=== PATIENT | female | born 1970 | race African-American/Black ===

== ENCOUNTER 2018-05-04 12:14 | Emergency (ER) | payer BC ==
--- NOTE | 2018-05-04 12:49 | ER ---
Nurse's Notes [facility] Name: Magui Le Age: 48 yrs Sex: Female : 1970 Arrival Date: 05/04/2018 Time: 12:18 Bed 13 Private MD: Prasanna Alcala V Diagnosis: Pain in right ankle and joints of right foot Presentation: 05/04 12:27 Presenting complaint: Patient states: "I have pain in my right ankle. I haven't done lk1 anything to it, just standing on it all the time. I have plantar fascitis.". Transition of care: patient was not received from another setting of care. Onset of symptoms was May 03, 2018. Risk Assessment: Do you want to hurt yourself or someone else? Patient reports no desire to harm self or others. Initial Sepsis Screen: Does the patient meet any 2 criteria? No. Patient's initial sepsis screen is negative. Does the patient have a suspected source of infection? No. Patient's initial sepsis screen is negative. Care prior to arrival: None. 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 - Social history:: Smoking status: Patient/guardian denies using tobacco. - Ebola Screening: : No symptoms or risks identified at this time. Screenin:35 Abuse screen: Denies threats or abuse. rb1 12:35 Nutritional screening: No deficits noted. Tuberculosis screening: No symptoms or risk rb1 factors identified. Fall Risk None identified. Assessment: 12:32 General: Appears uncomfortable, Behavior is calm, cooperative, Denies fever. Pain: rb1 Complains of pain in right foot Pain currently is 6 out of 10 on a pain scale. Pain began Off and on for several months. Neuro: Level of Consciousness is awake, alert, obeys commands, Oriented to person, place, time, situation. Cardiovascular: Capillary refill < 3 seconds is brisk in bilateral toes. Respiratory: Airway is patent Respiratory effort is even, unlabored, Respiratory pattern is regular, symmetrical. GI: No signs and/or symptoms were reported involving the gastrointestinal system. : No signs and/or symptoms were reported regarding the genitourinary system. Derm: Skin is dry, Skin is normal, Skin temperature is warm. Musculoskeletal: Range of motion: intact in all extremities. 13:20 Reassessment: Patient appears in no apparent distress at this time. Patient and/or rb1 family updated on plan of care and expected duration. Pain level reassessed. Patient is alert, oriented x 3, equal unlabored respirations, skin warm/dry/pink. Patient states symptoms have improved. Vital Signs: 12:30 BP 142 / 89; Pulse 73; Resp 15; Temp 97.1(TE); Pulse Ox 99% on R/A; Weight 107.05 kg lk1 (R); Height 5 ft. 2 in. (157.48 cm) (R); Pain 7/10; 13:20 BP 133 / 88; Pulse 76; Resp 19; Pulse Ox 99% on R/A; rb1 12:30 Body Mass Index 43.16 (107.05 kg, 157.48 cm) lk1 ED Course: 12:18 Patient arrived in ED. sb2 12:19 Prasanna Alcala MD is Private Physician. sb2 12:25 Christine Gates FNP-C [facility]. snw 12:25 Zaid Russell MD is Attending Physician. snw 12:28 Triage completed. lk1 12:32 Arm band placed on right wrist. lk1 12:35 Patient has correct armband on for positive identification. Bed in low position. Call rb1 light in reach. Side rails up X 1. Pulse ox on. NIBP on. 12:37 Mary Kong, TRENT is Primary Nurse. rb1 12:48 Prasanna Alcala MD is Referral Physician. snw 13:35 No provider procedures requiring assistance completed. Patient did not have IV access rb1 during this emergency room visit. Administered Medications: 12:50 Drug: TORadol 60 mg Route: IM; Site: right gluteus; rb1 13:20 Follow up: Response: No adverse reaction; Pain is decreased rb1 Outcome: 12:49 Discharge ordered by MD. snw 13:35 Discharged to home ambulatory. rb1 13:35 Condition: stable 13:35 Discharge instructions given to patient, Instructed on discharge instructions, follow up and referral plans. medication usage, Demonstrated understanding of instructions, follow-up care, medications, Prescriptions given X 1. 13:35 Patient left the ED. rb1 Signatures: Christine Gates, POSTMASTER-C POSTMASTER-Csnw Mary Kong, RN RN rb1 Dinora Sandy RN RN lk1 Sivan Garza sb2 Corrections: (The following items were deleted from the chart) 13:40 13:39 No provider procedures requiring assistance completed. rb1 rb1 13:40 13:39 Patient did not have IV access during this emergency room visit. rb1 rb1 13:41 13:40 Patient left the ED. rb1 rb1
--- NOTE | 2018-05-04 12:49 | EDPHYS ---
Physician Documentation [facility] Name: Magui Le Age: 48 yrs Sex: Female : 1970 Arrival Date: 05/04/2018 Time: 12:18 Bed 13 Private MD: Prasanna Alcala V ED Physician Zaid Russell HPI: 05/04 12:46 This 48 yrs old Black Female presents to ER via Ambulatory with complaints of Ankle snw Injury. 12:46 The patient presents with pain, that is chronic, swelling, tenderness. The complaints snw affect the right ankle. Onset: The symptoms/episode began/occurred gradually, 1 week(s) ago, and became worse and became persistent. Context: The problem was sustained at an unknown location, resulted from The patient can fully bear weight on the affected extremity. the patient is able to ambulate. Associated signs and symptoms: The patient has no apparent associated signs or symptoms. Severity of symptoms: At their worst the symptoms were moderate, severe. The patient has experienced a previous episode, approximately 3 years ago. The patient has not recently seen a physician, Dr. Houston injected area 3 yrs ago. 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 - Social history:: Smoking status: Patient/guardian denies using tobacco. - Ebola Screening: : No symptoms or risks identified at this time. ROS: 12:46 Constitutional: Negative for fever, chills, and weight loss, Eyes: Negative for injury, snw pain, redness, and discharge, ENT: Negative for injury, pain, and discharge, Neck: Negative for injury, pain, and swelling, Cardiovascular: Negative for chest pain, palpitations, and edema, Respiratory: Negative for shortness of breath, cough, wheezing, and pleuritic chest pain, Abdomen/GI: Negative for abdominal pain, nausea, vomiting, diarrhea, and constipation, Back: Negative for injury and pain, : Negative for injury, bleeding, discharge, and swelling, Skin: Negative for injury, rash, and discoloration, Neuro: Negative for headache, weakness, numbness, tingling, and seizure. 12:46 MS/extremity: Positive for pain, of the right Achilles and lateral aspect of right calf. Exam: 12:43 Constitutional: This is a well developed, well nourished patient who is awake, alert, snw and in no acute distress. Head/Face: Normocephalic, atraumatic. Eyes: Pupils equal round and reactive to light, extra-ocular motions intact. Lids and lashes normal. Conjunctiva and sclera are non-icteric and not injected. Cornea within normal limits. Periorbital areas with no swelling, redness, or edema. ENT: Nares patent. No nasal discharge, no septal abnormalities noted. Tympanic membranes are normal and external auditory canals are clear. Oropharynx with no redness, swelling, or masses, exudates, or evidence of obstruction, uvula midline. Mucous membranes moist. Neck: Trachea midline, no thyromegaly or masses palpated, and no cervical lymphadenopathy. Supple, full range of motion without nuchal rigidity, or vertebral point tenderness. No Meningismus. Chest/axilla: Normal chest wall appearance and motion. Nontender with no deformity. No lesions are appreciated. Cardiovascular: Regular rate and rhythm with a normal S1 and S2. No gallops, murmurs, or rubs. Normal PMI, no JVD. No pulse deficits. Respiratory: Lungs have equal breath sounds bilaterally, clear to auscultation and percussion. No rales, rhonchi or wheezes noted. No increased work of breathing, no retractions or nasal flaring. Abdomen/GI: Soft, non-tender, with normal bowel sounds. No distension or tympany. No guarding or rebound. No evidence of tenderness throughout. Back: No spinal tenderness. No costovertebral tenderness. Full range of motion. Skin: Warm, dry with normal turgor. Normal color with no rashes, no lesions, and no evidence of cellulitis. Neuro: Awake and alert, GCS 15, oriented to person, place, time, and situation. Cranial nerves II-XII grossly intact. Motor strength 5/5 in all extremities. Sensory grossly intact. Cerebellar exam normal. Normal gait. Psych: Awake, alert, with orientation to person, place and time. Behavior, mood, and affect are within normal limits. 12:43 Musculoskeletal/extremity: Extremities: grossly normal except: noted in the lateral aspect of right calf, right ankle and right Achilles: swelling, tenderness, ROM: no acute changes, Circulation is intact in all extremities. DVT Exam: negative Homans' sign noted on exam, no appreciated bluish discoloration, no erythema, no increased warmth. Vital Signs: 12:30 BP 142 / 89; Pulse 73; Resp 15; Temp 97.1(TE); Pulse Ox 99% on R/A; Weight 107.05 kg lk1 (R); Height 5 ft. 2 in. (157.48 cm) (R); Pain 7/10; 13:20 BP 133 / 88; Pulse 76; Resp 19; Pulse Ox 99% on R/A; rb1 12:30 Body Mass Index 43.16 (107.05 kg, 157.48 cm) lk1 MDM: 12:33 Patient medically screened. snw 12:45 Data reviewed: vital signs, nurses notes. Data interpreted: Pulse oximetry: on room air snw is 99 %. Interpretation: normal. Counseling: I had a detailed discussion with the patient and/or guardian regarding: the historical points, exam findings, and any diagnostic results supporting the discharge/admit diagnosis, the presence of at least one elevated blood pressure reading (>120/80) during this emergency department visit, the need for outpatient follow up, to return to the emergency department if symptoms worsen or persist or if there are any questions or concerns that arise at home. Special discussion: I have referred the patient to see his PCP for further evaluation of high blood pressure. Based on the history and exam findings, there is no indication for further emergent testing or inpatient evaluation. I discussed with the patient/guardian the need to see the retail product demo specialist for further evaluation of the symptoms. 12:51 ED course: +Gan test. snw 05/04 12:51 Order name: Aircast Ankle Splint; Complete Time: 13:19 snw Administered Medications: 12:50 Drug: TORadol 60 mg Route: IM; Site: right gluteus; rb1 13:20 Follow up: Response: No adverse reaction; Pain is decreased rb1 Disposition: 18:32 Co-signature as Attending Physician, Zaid Russell MD. Disposition: 05/04/18 12:49 Discharged to Home. Impression: Pain in right ankle and joints of right foot. - Condition is Stable. - Discharge Instructions: Arthralgia, Hypertension, Musculoskeletal Pain, Cast or Splint Care, [id number], Cryotherapy, Heat Therapy. - Prescriptions for Voltaren 1 % Topical gel - apply 2 gram by TOPICAL route 4 times per day; 50 gram. - Work release form, Medication Reconciliation Form, Thank You Letter, Antibiotic Education, Prescription Opioid Use form. - Follow up: Prasanna Aclala MD; When: 2 - 3 days; Reason: Recheck today's complaints, Continuance of care, Re-evaluation by your physician. Follow up: Emergency Department; When: As needed; Reason: Worsening of condition. Signatures: Christine Gates, BUILDING SUPPLIES SALESPERSON RETAIL-C BUILDING SUPPLIES SALESPERSON RETAIL-Csnw Mary Kong, RN RN rb1 Dinora Sandy RN RN lk1 Zaid Russell MD MD Corrections: (The following items were deleted from the chart) 13:40 12:49 05/04/2018 12:49 Discharged to Home. Impression: Pain in right ankle and joints rb1 of right foot. Condition is Stable. Forms are Medication Reconciliation Form, Thank You Letter, Antibiotic Education, Prescription Opioid Use. Follow up: Prasanna Alcala; When: 2 - 3 days; Reason: Recheck today's complaints, Continuance of care, Re-evaluation by your physician. Follow up: Emergency Department; When: As needed; Reason: Worsening of condition. snw
[2018-05-04] MEDS ORDERED: KETOROLAC 30 MG/ML INJ ONE (12:51)
== END 2018-05-04 13:40 | disposition home or self-care (01) ==
LOC: ER 12:14
DX: M25.571 Pain in right ankle and joints of right foot (principal); I10 Essential (primary) hypertension; Z88.5 Allergy status to narcotic agent
CPT/HCPCS: 96372; 99283

== ENCOUNTER 2019-05-16 09:42 | Emergency (ER) | payer BC ==
--- NOTE | 2019-05-16 11:03 | RAD REPORT ---
EXAM DESCRIPTION: US - Extrem Venous W Compress Phil - 05/16/2019 10:51 am CLINICAL HISTORY: PAIN Bilateral leg edema and swelling. COMPARISON: EXT VENOUS UNI LTD dated 02/04/2014 TECHNIQUE: Real-time sonographic interrogation of the left and right lower extremity deep venous sys tems was performed. FINDINGS: Normal compressibility, flow augmentation, phasic flow and spontaneous flow is identified in both the left and right lower extremity deep venous systems. IMPRESSION: No sonographic evidence of left or right lower extremity deep venous thrombosis.
[2019-05-16 11:28] LABS: Absolute Lymphocytes (CBC) 2.1 K/uL (0.7-4.9); Basophils % 0.9 % (0-1.3); Eosinophils % 2.7 % (0-4.4); Lymphocytes % 35.1 % (15.3-44.8); MPV 9.4 fL (7.6-11.3); Monocytes % 7.9 % (3.3-12.3); RBC Red Blood Cell Count 4.21 M/uL (3.86-4.86)
[2019-05-16 11:38] LABS: Albumin 3.2 g/dL (3.4-5.0); Bilirubin Total 0.4 mg/dL (0.2-1.0); Protein, Total 7.6 g/dL (6.4-8.2)
--- NOTE | 2019-05-16 12:23 | ER ---
Nurse's Notes [facility] Name: Magui Le Age: 49 yrs Sex: Female : 1970 Arrival Date: 05/16/2019 Time: 09:44 Bed 15 Private MD: Prasanna Alcala V Diagnosis: Pain in left lower leg;Pain in right lower leg Presentation: 05/16 10:03 Presenting complaint: Patient states: right ankle has been swelling and painful for iw past 2-3 months ,left ankle started having similar symptoms 2-3 weeks ago. Transition of care: patient was not received from another setting of care. Onset of symptoms was March 2019. Risk Assessment: Do you want to hurt yourself or someone else? Patient reports no desire to harm self or others. Initial Sepsis Screen: Does the patient meet any 2 criteria? No. Patient's initial sepsis screen is negative. Does the patient have a suspected source of infection? No. Patient's initial sepsis screen is negative. Care prior to arrival: None. 10:03 Method Of Arrival: Ambulatory iw 10:03 Acuity: KG 3 iw GROUP TESTER: 09:50 LMP 05/09/2019 rb1 Historical: - Allergies: 10:04 Codeine; iw - Home Meds: 09:50 losartan-hydrochlorothiazide 50-12.5 mg Oral tab 1 tab once daily [Active]; rb1 - PMHx: 10:04 Hypertension; iw - PSHx: 09:50 lap band; ; rb1 - Immunization history:: Adult Immunizations unknown. - Social history:: Smoking status: . - Ebola Screening: : Patient negative for fever greater than or equal to 101.5 degrees Fahrenheit, and additional compatible Ebola Virus Disease symptoms Patient denies exposure to infectious person Patient denies travel to an Ebola-affected area in the 21 days before illness onset No symptoms or risks identified at this time. Screenin:50 Abuse screen: Denies threats or abuse. Nutritional screening: No deficits noted. rb1 Tuberculosis screening: No symptoms or risk factors identified. Fall Risk None identified. Assessment: 09:50 General: Appears in no apparent distress. comfortable, Behavior is calm, cooperative. rb1 Pain: Complains of pain in bilateral lower extremities Pain currently is 6 out of 10 on a pain scale. Neuro: Level of Consciousness is awake, alert, obeys commands, Oriented to person, place, time, situation. Cardiovascular: Capillary refill < 3 seconds is brisk in bilateral toes. Respiratory: Airway is patent Respiratory effort is even, unlabored, Respiratory pattern is regular, symmetrical. GI: No signs and/or symptoms were reported involving the gastrointestinal system. : No signs and/or symptoms were reported regarding the genitourinary system. Derm: Skin is dry, Skin is normal, Skin temperature is warm. Musculoskeletal: Range of motion: intact in all extremities. 10:50 Reassessment: Patient appears in no apparent distress at this time. No changes from rb1 previously documented assessment. 11:15 Reassessment: Lab recollect drawn and sent to lab. . aa5 11:48 Reassessment: Patient appears in no apparent distress at this time. Patient and/or rb1 family updated on plan of care and expected duration. Pain level reassessed. Patient is alert, oriented x 3, equal unlabored respirations, skin warm/dry/pink. pain 5/10. 12:40 Reassessment: Patient appears in no apparent distress at this time. No changes from rb1 previously documented assessment. Pt. is on her telephone. Call light within reach. Vital Signs: 10:06 BP 134 / 91; Pulse 62; Resp 16; Temp 97.9(TE); Pulse Ox 100% on R/A; iw 10:59 BP 134 / 91; Pulse 64; Resp 17; Temp 97.8(O); Pulse Ox 100% on R/A; mh5 11:56 BP 135 / 92; Pulse 66; Resp 16; Temp 98.0(O); Pulse Ox 99% on R/A; Pain 5/10; rb1 12:48 BP 134 / 88; Pulse 61; Resp 17; Temp 98.4(O); Pulse Ox 99% on R/A; Pain 5/10; rb1 ED Course: 09:44 Patient arrived in ED. as 09:44 Prasanna Alcala MD is Private Physician. as 09:49 Hermelindo Cooper NP is PHCP. pm1 09:49 Joshua Goldberg MD is Attending Physician. pm1 10:04 Triage completed. iw 10:08 Arm band placed on. iw 10:18 Mary Kong, TRENT is Primary Nurse. rb1 10:50 Missed attempt(s): 22 gauge in left antecubital area. rb1 10:51 Extrem Venous W Compression Phil US In Process Unspecified. EDMS 11:00 Patient has correct armband on for positive identification. Bed in low position. Call mh5 light in reach. Warm blanket given. Pulse ox on. NIBP on. 11:15 Missed attempt(s): 22 gauge in right forearm. Bleeding controlled, band aid applied, aa5 catheter tip intact. 11:15 Lab(s) recollected, by me, sent to lab. aa5 13:00 No provider procedures requiring assistance completed. Patient did not have IV access rb1 during this emergency room visit. Administered Medications: No medications were administered Outcome: 12:22 Discharge ordered by MD. pm1 13:00 Patient left the ED. rb1 13:00 Discharged to home ambulatory. rb1 13:00 Condition: stable 13:00 Discharge instructions given to patient, Instructed on discharge instructions, follow up and referral plans. medication usage, Demonstrated understanding of instructions, follow-up care, medications, Prescriptions given X 2. Signatures: Dispatcher [employer] [facility] Anna Marie Mahan as Ashley Harris RN RN Kalie Flores RN RN 5 Mary Knog, TRENT RN rb1 Hermelindo Cooper, LEAD RADIOLOGIC TECHNOLOGIST LEAD RADIOLOGIC TECHNOLOGIST pm1 Chyna Mahan [facility] Corrections: (The following items were deleted from the chart) 13:46 13:24 Patient left the ED. rb1 rb1
--- NOTE | 2019-05-16 12:23 | EDPHYS ---
Physician Documentation [facility] Name: Magui Le Age: 49 yrs Sex: Female : 1970 Arrival Date: 05/16/2019 Time: 09:44 Bed 15 Private MD: Prasanna Alcala V ED Physician Joshua Goldberg HPI: 05/16 10:05 This 49 yrs old Black Female presents to ER via Ambulatory with complaints of Ankle pm1 Swelling. 10:05 The patient presents with pain. The complaints affect the right calf and right Achilles pm1 and left calf and left Achilles. Context: The problem was sustained at an unknown site, resulted from an unknown cause, the patient can fully bear weight, the patient is able to ambulate, Problem is a result from a previous injury: No. Onset: The symptoms/episode began/occurred right leg for 1 week and left leg for 3 months. Modifying factors: The symptoms are alleviated by elevating leg, the symptoms are aggravated by weight bearing. Associated signs and symptoms: Pertinent positives: calf tenderness, swelling, Pertinent negatives fever. Treatment prior to arrival includes: new shoes. Severity of symptoms: in the emergency department the symptoms are actually worse. seen by medical device sales for same complaint and was told that it is possibly plantar fascitis and was recommended new shoes. DIRECTOR PERSONAL: 09:50 LMP 05/09/2019 rb1 Historical: - Allergies: 10:04 Codeine; iw - Home Meds: 09:50 losartan-hydrochlorothiazide 50-12.5 mg Oral tab 1 tab once daily [Active]; rb1 - PMHx: 10:04 Hypertension; iw - PSHx: 09:50 lap band; ; rb1 - Immunization history:: Adult Immunizations unknown. - Social history:: Smoking status: . - Ebola Screening: : Patient negative for fever greater than or equal to 101.5 degrees Fahrenheit, and additional compatible Ebola Virus Disease symptoms Patient denies exposure to infectious person Patient denies travel to an Ebola-affected area in the 21 days before illness onset No symptoms or risks identified at this time. ROS: 10:05 Constitutional: Negative for fever, chills, and weight loss, Eyes: Negative for injury, pm1 pain, redness, and discharge, ENT: Negative for injury, pain, and discharge, Neck: Negative for injury, pain, and swelling, Cardiovascular: Negative for chest pain, palpitations, and edema, Respiratory: Negative for shortness of breath, cough, wheezing, and pleuritic chest pain, Abdomen/GI: Negative for abdominal pain, nausea, vomiting, diarrhea, and constipation, Back: Negative for injury and pain. 10:05 Skin: Negative for injury, rash, and discoloration, Neuro: Negative for headache, weakness, numbness, tingling, and seizure. 10:05 MS/extremity: Positive for pain, of the left calf and left Achilles and right calf and right Achilles, Negative for decreased range of motion, deformity. Exam: 10:05 Constitutional: This is a well developed, well nourished patient who is awake, alert, pm1 and in no acute distress. Head/Face: Normocephalic, atraumatic. Neck: Trachea midline, no thyromegaly or masses palpated, and no cervical lymphadenopathy. Supple, full range of motion without nuchal rigidity, or vertebral point tenderness. No Meningismus. Chest/axilla: Normal chest wall appearance and motion. Nontender with no deformity. No lesions are appreciated. Cardiovascular: Regular rate and rhythm with a normal S1 and S2. No gallops, murmurs, or rubs. Normal PMI, no JVD. No pulse deficits. Respiratory: Lungs have equal breath sounds bilaterally, clear to auscultation and percussion. No rales, rhonchi or wheezes noted. No increased work of breathing, no retractions or nasal flaring. Abdomen/GI: Soft, non-tender, with normal bowel sounds. No distension or tympany. No guarding or rebound. No evidence of tenderness throughout. Back: No spinal tenderness. No costovertebral tenderness. Full range of motion. Skin: Warm, dry with normal turgor. Normal color with no rashes, no lesions, and no evidence of cellulitis. 10:05 Musculoskeletal/extremity: Extremities: grossly normal except: noted in the right Achilles: tenderness, noted in the left Achilles: tenderness, ROM: intact in all extremities, Circulation is intact in all extremities. Vital Signs: 10:06 BP 134 / 91; Pulse 62; Resp 16; Temp 97.9(TE); Pulse Ox 100% on R/A; iw 10:59 BP 134 / 91; Pulse 64; Resp 17; Temp 97.8(O); Pulse Ox 100% on R/A; mh5 11:56 BP 135 / 92; Pulse 66; Resp 16; Temp 98.0(O); Pulse Ox 99% on R/A; Pain 5/10; rb1 12:48 BP 134 / 88; Pulse 61; Resp 17; Temp 98.4(O); Pulse Ox 99% on R/A; Pain 5/10; rb1 MDM: 09:50 Patient medically screened. pm1 12:01 Data reviewed: vital signs. Data interpreted: Pulse oximetry: on room air is 100 %. pm1 Interpretation: normal. Counseling: I had a detailed discussion with the patient and/or guardian regarding: the historical points, exam findings, and any diagnostic results supporting the discharge/admit diagnosis, lab results, radiology results, the need for outpatient follow up, to return to the emergency department if symptoms worsen or persist or if there are any questions or concerns that arise at home. 05/16 09:55 Order name: CBC with Diff; Complete Time: 11:34 pm1 05/16 09:55 Order name: CMP; Complete Time: 12:01 pm1 05/16 09:55 Order name: Extrem Venous W Compression Phil US; Complete Time: 11:14 pm05/16 13:18 Order name: Urine Dipstick--Ancillary (enter results) eb 05/16 13:18 Order name: Urine --Ancillary (enter results); Complete Time: 13:24 eb 05/16 13:19 Order name: Urine Dipstick-Ancillary; Complete Time: 13:24 EDMS 05/16 09:55 Order name: Urine Dipstick-Ancillary (obtain specimen); Complete Time: 13:23 pm1 05/16 09:55 Order name: Urine Test (obtain specimen); Complete Time: 13:23 pm1 05/16 10:51 Order name: Labs - recollect needed; Complete Time: 11:17 iw Administered Medications: No medications were administered Disposition: 15:14 Co-signature as Attending Physician, Joshua Goldberg MD. rn Disposition: 05/16/19 12:22 Discharged to Home. Impression: Pain in left lower leg, Pain in right lower leg. - Condition is Stable. - Discharge Instructions: Musculoskeletal Pain. - Prescriptions for Cyclobenzaprine 10 mg Oral Tablet - take 1 tablet by ORAL route every 8 hours As needed; 30 tablet. Diclofenac Sodium 75 mg Oral Tablet Sustained Release - take 1 tablet by ORAL route 2 times per day; 30 tablet. - Medication Reconciliation Form, Thank You Letter, Antibiotic Education, Prescription Opioid Use form. - Follow up: Emergency Department; When: As needed; Reason: Worsening of condition. Follow up: Private Physician; When: 2 - 3 days; Reason: Recheck today's complaints, Continuance of care, Re-evaluation by your physician. - Problem is new. - Symptoms have improved. Signatures: Dispatcher [employer] EDAshley Anderson, RN RN iw Joshua Goldberg MD MD rn Mary Kong RN RN rb1 Hermelindo Cooper, [employer] pm1 Corrections: (The following items were deleted from the chart) 13:23 09:55 IV Saline Lock ordered. pm1 rb1 13:24 12:22 05/16/2019 12:22 Discharged to Home. Impression: Pain in left lower leg; Pain in rb1 right lower leg. Condition is Stable. Forms are Medication Reconciliation Form, Thank You Letter, Antibiotic Education, Prescription Opioid Use. Follow up: Emergency Department; When: As needed; Reason: Worsening of condition. Follow up: Private Physician; When: 2 - 3 days; Reason: Recheck today's complaints, Continuance of care, Re-evaluation by your physician. Problem is new. Symptoms have improved. pm1
[2019-05-16 13:22] LABS: Urine Blood TRACE (NEG); Urine Glucose NEGATIVE (NEG); Urine Protein NEGATIVE (NEG)
== END 2019-05-16 13:24 | disposition home or self-care (01) ==
LOC: ER 09:42
DX: M79.662 Pain in left lower leg (principal); M79.661 Pain in right lower leg; I10 Essential (primary) hypertension; Z88.5 Allergy status to narcotic agent
CPT/HCPCS: 36415; 80053; 81003; 81025; 85025; 93970; 99284

== ENCOUNTER 2022-03-12 11:00 | Day surgery (SDC) | payer BC ==
--- NOTE | 2022-03-09 11:26 | RAD REPORT ---
EXAM DESCRIPTION: RAD - Chest Pa And Lat (2 Views) - 03/09/2022 11:20 am CLINICAL HISTORY: pre blood bank laboratory technologist procedure COMPARISON: No comparisons FINDINGS: Lines: None. Lungs: No evidence of edema or pneumonia. Pleural: No significant pleural effusions or pneumothorax. Cardiac: The heart size is within normal limits. Bones: No acute fractures. Other: IMPRESSION: No acute cardiopulmonary disease.
[2022-03-09 11:27] LABS: Absolute Lymphocytes (CBC) 2.4 K/uL (0.7-4.9); Hematocrit 34.4 % (36.0-45.0); Lymphocytes % 23.6 % (15.3-44.8); MPV 8.7 fL (7.6-11.3); RBC Red Blood Cell Count 4.13 M/uL (3.86-4.86)
[2022-03-09 11:38] LABS: Protime INR 0.99
[2022-03-09 11:42] LABS: BUN Blood Urea Nitrogen 11 mg/dL (7-18); Bicarbonate 28 mmol/L (21-32); Glucose Level 88 mg/dL (74-106); Potassium 3.9 mmol/L (3.5-5.1); Sodium Level 141 mmol/L (136-145)
[2022-03-12] MEDS ORDERED: NA CHLORIDE 0.9% 500 ML ONE (11:09)
[2022-03-12 11:30] VITALS: O2SAT 100
[2022-03-12] MEDS ORDERED: VERAPAMIL HCL 10 MG/4 ML VIAL IV ONE (11:43)
[2022-03-12] MEDS ORDERED: MIDAZOLAM HCL 2 MG/2 ML INJ ONE (11:43)
[2022-03-12] MEDS ORDERED: HEPARIN 5000 UNIT/ML 1 ML VIAL ONE (11:43)
[2022-03-12] MEDS ORDERED: FENTANYL CITR 100 MCG/2 ML ONE (11:43)
[2022-03-12] MEDS ORDERED: NITROGLYCERIN 100 MCG/ML SYR (for cath lab use only) IV ONE (11:44)
[2022-03-12] MEDS ORDERED: ATROPINE SULF 1 MG/10 ML SYR IV ONE (11:44)
[2022-03-12] MEDS ORDERED: TICAGRELOR 90 MG TABLET PO ONE (11:44)
[2022-03-12] MEDS ORDERED: NITROGLYCERIN/D5W 25 MG/250 ML BTL IV ONE (11:44)
[2022-03-12] MEDS ORDERED: ASPIRIN 325 MG TAB ONE (11:44)
[2022-03-12] MEDS ORDERED: LIDOCAINE 1% MPF 30 ML VIAL ONE (12:02)
[2022-03-12] MEDS ORDERED: HEPA 1000U/500MLS 2,000 UNIT/1,000 ML BAG IV ONE (12:02)
[2022-03-12] MEDS ORDERED: HEPA 1000U/500MLS 1,000 UNIT/500 ML BAG IV ONE (12:03)
[2022-03-12 14:37] VITALS: BP 168/97; TEMP 97
--- NOTE | 2022-03-13 00:29 | OP ---
Date of Procedure: 03/12/2022 Surgeon: AYAN CORTEZ Procedure Performed: 1.Selective coronary angiogram. 2.Left heart catheterization. Access: Right radial artery 6-Czech closed with TR band. Complications: None. Bleedin mL. Total Sedation Time: 30 minutes. Indication: Abnormal stress test. Description Of Procedure: After risks, benefits, and alternatives were explained, patient agreed to proceed and signed informed consent. The patient was brought into the cardiac catheterization labora tory, prepped and draped in usual sterile fashion. I accessed the right radial artery using [employer] micropuncture kit and placed a 6-Czech slender sheath and took 5-Czech tiger 4.0 catheter, engage d left main, right coronary artery and took standard views and then removed the catheter and the li th, and placed TR band with good hemostasis. Also the catheter was pushed over the wire into the LV. LVEDP was measured. Pullback did not record any gradient. Findings: 1.The left main, large and normal. 2.LAD; large and normal, tapers down to a very small vessel distally. Normal diagonals. 3.Left circumflex, very large and normal. 4.RCA; large and dominant and normal. 5.LVEDP normal at 9 mmHg. Conclusion: 1.Normal coronary arteries. 2.Normal LVEDP of 9 mmHg. Plan: Medical management. /BARBRA Voice ID: [id number] Report ID: [id number]
== END 2022-03-12 14:30 | disposition home or self-care (01) ==
LOC: CCL 11:00
PROVIDERS: ATTEND Internal Medicine
DX: R94.39 Abnormal result of other cardiovascular function study (principal); I10 Essential (primary) hypertension; Z01.810 Encounter for preprocedural cardiovascular examination; Z88.5 Allergy status to narcotic agent; Z20.822 Contact with and (suspected) exposure to COVID-19
CPT/HCPCS: 85025; 80048; 36415; 85610; 85730; 71046; 93458; 76937; U0003; C1893; Q9967; J1644 ×3; J2250; J3010; J7040